=== PATIENT | male | born 1975 | race Caucasian/White ===

== ENCOUNTER 2018-03-10 20:06 | Emergency (ER) | payer BC, OTHER ==
[2018-03-10 20:35] VITALS: BP 175/92; PULSE 58; RESP 18; TEMP 98.2
--- NOTE | 2018-03-10 21:34 | XR ---
EXAMINATION TYPE: XR hand complete RT DATE OF EXAM: 03/10/2018 COMPARISON: NONE HISTORY: Pain TECHNIQUE: 3 views FINDINGS: The metacarpals are intact. I see no fracture nor dislocation. There are no erosions. IMPRESSION: Negative right hand exam.
--- NOTE | 2018-03-10 21:35 | XR ---
EXAMINATION TYPE: XR forearm RT DATE OF EXAM: 03/10/2018 COMPARISON: NONE HISTORY: Pain TECHNIQUE: 2 views FINDINGS: I see no fracture nor dislocation. Joint spaces are normal. IMPRESSION: Negative right forearm exam.
--- NOTE | 2018-03-10 21:35 | XR ---
EXAMINATION TYPE: XR wrist complete RT DATE OF EXAM: 03/10/2018 COMPARISON: NONE HISTORY: Pain TECHNIQUE: 4 views FINDINGS: The carpal bones are intact. I see no fracture nor dislocation. Joint spaces are normal. Sc aphoid appears normal. IMPRESSION: Normal right wrist
--- NOTE | 2018-03-10 21:36 | XR ---
EXAMINATION TYPE: XR femur LT DATE OF EXAM: 03/10/2018 COMPARISON: NONE HISTORY: Pain TECHNIQUE: 4 views FINDINGS: There is no sign of fracture nor dislocation. Knee joint and hip joint appear intact. IMPRESSION: Negative left femur exam.
--- NOTE | 2018-03-10 21:48 | ED ---
General Adult HPI - General Chief complaint: Extremity Injury, Upper Stated complaint: Arm injury Time Seen by Provider: 03/10/18 20:45 Source: patient Mode of arrival: ambulatory Limitations: no limitations - History of Present Illness Initial comments: This is a 43yo male with no PMH who presents today for CC of right forearm and wrist pain as well as pain in the left thigh. Pt states that he was working with a friend they were breaking up 2x4 when the both went to snap one of the board in two it flung back and struck him in the right forearm/wrist/hand and his left thigh. He immediately noted pain in those area and bruising of the left thigh. Pt denies abrasion or laceration, loss of sensation in extremities, parathesias, numbness, weakness or decreased ROM in the UE or LE b/l, injury to head or other extremities. pt presented to [facility] where he was sent here for further workup. Pt presented in stable condition denying chest pain, sob, visual changes, urgency, frequency, abdominal pain, nausea, vomiting, headache or any other symptoms. - Related Data Home Medications Medication Instructions Recorded Confirmed No Known Home Medications 03/10/18 03/10/18 Allergies Allergy/AdvReac Type Severity Reaction Status Date / Time No Known Allergies Allergy Verified 03/10/18 21:25 Review of Systems ROS Statement: Those systems with pertinent positive or pertinent negative responses have been documented in the HPI. ROS Other: All systems not noted in ROS Statement are negative. Past Medical History Past Medical History: Hyperlipidemia, Hypertension, Sleep Apnea/CPAP/BIPAP Additional Past Medical History / Comment(s): heel spurs, stress test was negative, History of Any Multi-Drug Resistant Organisms: None Reported Additional Past Surgical History / Comment(s): heel spur surgery,lap band Past Anesthesia/Blood Transfusion Reactions: No Reported Reaction Past Psychological History: No Psychological Hx Reported Smoking Status: Current every day smoker Past Alcohol Use History: Rare Past Drug Use History: Marijuana - Past Family History Father Family Medical History: Coronary Artery Disease (CAD), Diabetes Mellitus, Hypertension Mother Family Medical History: Hypertension Additional Family Medical History / Comment(s): depression General Exam - General Exam Comments Initial Comments: General: The patient is awake and alert, in no distress, and does not appear acutely ill. Eye: Pupils are equal, round and reactive to light, extra-ocular movements are intact. No nystagmus. There is normal conjunctiva bilaterally. No signs of icterus. Ears, nose, mouth and throat: There are moist mucous membranes and no oral lesions. Neck: The neck is supple, there is no tenderness or JVD. Cardiovascular: There is a regular rate and rhythm. No murmur, rub or gallop is appreciated. Respiratory: Lungs are clear to auscultation, respirations are non-labored, breath sounds are equal. No wheezes, stridor, rales, or rhonchi. Musculoskeletal: Pt has ecchymosis of right forearm, and hematoma formation on left anterior thigh. There is no soft tissue swelling over the right forearm, wrist or hand. pt has full ROM of the elbow, wrist, hands b/l equally with 5/5 strength. Pt is tender to palpation over the forearm, wrist and hand as well as the left anterior thigh in the area of the hematoma. Pt has full ROM and strength of the left hip and knee equal b/l. Extensor mechanism intact. No laceration or abrasion. Compartment are soft and compressible. +2 DP and radial pulses equal b/l. Capillary refill <2secs. Full senation of the full UE and LE equally b/l. Pt is able to make the ok, fingers crossed and stop signs with hands b/l. Neurological: A&O x 3. CN II-XII intact, There are no obvious motor or sensory deficits. Coordination appears grossly intact. Speech is normal. Skin: Skin is warm and dry and no rashes or lesions are noted. Psychiatric: Cooperative, appropriate mood & affect, normal judgment. Limitations: no limitations Course Vital Signs 03/10/18 20:32 Temperature 98.2 F Pulse Rate 58 L Respiratory 18 Rate Blood Pressure 175/92 O2 Sat by Pulse 100 Oximetry Medical Decision Making - Medical Decision Making XR of right forearm, wrist and hand and the left femur returned negative for acute findings. Case was discussed with Dr. Silva at this time we feel given his XR and physical examination findings that his injuries sustained are localized to the soft tissues, including left anterior thigh hematoma. Pt was educated on signs of an infected hematoma. Pt instructed to ice the areas for swelling reduction, and he can use OTC ibuprofen or tylenol for pain management as needed. Pt agreed with plan and was discharged in stable condition. Disposition Clinical Impression: Hematoma of left thigh, Right wrist pain, Right hand pain Disposition: HOME SELF-CARE Instructions: Hematoma (ED) Additional Instructions: Please use over the counter medication as discussed for pain management. Please follow-up with family doctor in the next 2 days of symptoms have not improved. Please return to emergency room if the symptoms increase or worsen or for any other concerns. Is patient prescribed a controlled substance at d/c from ED?: No Referrals: Allie Wood MD [Primary Care Provider] - 1-2 days Time of Disposition: 21:47
== END 2018-03-10 22:05 | disposition home or self-care (01) ==
LOC: EC 20:06
DX: S70.12XA Contusion of left thigh, initial encounter (principal); M79.641 Pain in right hand; M25.531 Pain in right wrist; M79.631 Pain in right forearm; F17.200 Nicotine dependence, unspecified, uncomplicated; W31.9XXA Contact with unspecified machinery, initial encounter
CPT/HCPCS: 99283

== ENCOUNTER → 2020-05-07 | Outpatient (CLI) | payer OTHER ==
[2020-05-07 14:16] VITALS: BP 122/79; PULSE 77; RESP 18; TEMP 98.1
--- NOTE | 2020-05-07 14:18 | P.HPBAR ---
Bariatric H&P - History & Physicial H&P Date: 05/07/20 History & Physicial: Visit/CC: initial; previous lap band surgery Patient initial contact: Initial weight: 109.769 kg Initial weight in pounds: 242.00 Height: 5 ft 6 in Initial BMI: Last weight: Current weight: 99.473 kg Current weight in pounds: Current BMI: [place] body weight (based on NIH guidelines): Excess body weight loss: The patient is a 45 year-old M who presents for Bariatric Assessment. Patient presents today for initial visit. His LAP-BAND was performed in 2017 by another surgeon. His primary surgeon had and was looking for follow-up in another site. Patient has lost proximal and 65 pounds since his LAP-BAND surgery. He's complaints of hunger and wishes to have a fill. Past Medical History Past Medical History: Hyperlipidemia, Hypertension, Sleep Apnea/CPAP/BIPAP Additional Past Medical History / Comment(s): heel spurs, stress test was negative, History of Any Multi-Drug Resistant Organisms: None Reported Additional Past Surgical History / Comment(s): heel spur surgery,lap band Past Anesthesia/Blood Transfusion Reactions: No Reported Reaction Past Psychological History: No Psychological Hx Reported Smoking Status: Former smoker Past Alcohol Use History: Rare Past Drug Use History: Marijuana - Past Family History Father Family Medical History: Coronary Artery Disease (CAD), Diabetes Mellitus, Hypertension Mother Family Medical History: Hypertension Additional Family Medical History / Comment(s): depression Surgical - Exam Vital Signs Temp Pulse Resp BP 98.1 F 77 18 122/79 05/07/20 14:03 05/07/20 14:03 05/07/20 14:03 05/07/20 14:03 - General well developed, well nourished, no distress - Eyes PERRL - ENT normal pinna - Neck no masses - Respiratory normal expansion - Cardiovascular Rhythm: regular - Abdomen Abdomen: soft, non tender Bariatric Assessment & Plan Plan: Patient's lap band was adjusted. She had 1 mL added to the band. She currently 7 mL in the band. He will follow-up in 4 weeks. Bariatric Checklist Checklist: Plan: Checklist: EGD: 1. Hiatal hernia: 2. H. Pylori: HgbA1c: Vitamin D: Smoking: Current every day smoker Primary care physician referral: Dr. George Psychiatry clearance: Cardiology clearance: Sleep study: Diet journal: VTE risk score: VTE risk level: Rehab needs at discharge:
[2020-05-07 14:20] VITALS: BMI 35.4
== END | disposition home or self-care (01) ==
LOC: BARWHC3 13:20
PROVIDERS: ATTEND Surgery
DX: Z46.51 Encounter for fitting and adjustment of gastric lap band (principal)
CPT/HCPCS: 99212